=== PATIENT | male | born 1950 | race Caucasian/White ===

== ENCOUNTER 2021-07-28 08:29 | Day surgery (SDC) | payer MEDICARE, MEDICAID ==
[~2021-07-28] VITALS: Ht 180.3 cm; Wt 77.7 kg
[2021-07-28] VITALS (13 sets, daily range): BP systolic 118–172; BP diastolic 50–81
[~2021-07-28 08:29] MED LIST: AMOX-422 PO; ATOR80TA PO; DIGO125T97 PO; ENAL20TA75 PO; GLIP10TA11 PO; METF500T PO; METO50TA16 PO; NPH,100V SQ
[2021-07-28] MEDS ORDERED: MIRT-87 PO (09:03)
[2021-07-28] MEDS ORDERED: dextrose 50%-water 50ml dispensing syringe IV PRN ×2 (09:05)
[2021-07-28] MEDS ORDERED: glucagon, human recombinant 1mg kit SUBCUT PRN (09:05)
[2021-07-28] MEDS ORDERED: insulin Lispro (HumaLOG) vial - multi-dose SQ SCH (09:05)
[2021-07-28] MEDS ORDERED: DEXTROSE 15 GM of carb/4 tabs (each vial/BOTTLE has 4 tablets) PO PRN ×2 (09:05)
[2021-07-28] MEDS ORDERED: diphenhydrAMINE 25mg capsule PO PRN (09:05)
[2021-07-28] MEDS ORDERED: nitroGLYCERIN 0.4mg SUBLingual tab SL PRN ×2 (09:05→12:00)
[2021-07-28] MEDS ORDERED: normal saline 1,000 ML IV SCH (09:05)
[2021-07-28] MEDS ORDERED: MESSAGE TO PHARMACY PO ONE (09:05)
[2021-07-28] MEDS ORDERED: LORazepam 0.5 MG tablet PO PRN (09:05)
[2021-07-28] MEDS ORDERED: LIDOcaine 1% (10mg/ml)w/preservative inj. 20ml MDV ONE (09:34)
[2021-07-28] MEDS ORDERED: iohexol 350 MG/ML 50ML vial IV ONE ×2 (09:34→10:26)
[2021-07-28] MEDS ORDERED: midazolam 1 mg/ML 2ml injection ONE (09:34)
[2021-07-28] MEDS ORDERED: fentaNYL/PF 50MCG/1 ML 2ML syringe ONE (09:34)
[2021-07-28] MEDS ORDERED: iohexol 350MG/ML 100ml bottle IV ONE (09:34)
[2021-07-28] MEDS ORDERED: ondansetron/PF 4mg/2ml inj IV PRN (12:00)
[2021-07-28] MEDS ORDERED: OXAZEpam 15mg capsule PO PRN (12:00)
[2021-07-28] MEDS ORDERED: normal saline 1000ml 1,000 ML IV SCH (12:00)
[2021-07-28] MEDS ORDERED: HYDROcodone/acetaminophen 5mg/325mg tablet PO PRN (12:00)
[2021-07-28] MEDS ORDERED: HYDROcodone/acetaminophen 10/325mg tab PO PRN (12:00)
[2021-07-28] MEDS ORDERED: proCHLORperazine 10 MG/2 ml inj IV PRN (12:00)
[2021-07-28] MEDS ORDERED: insulin glargine (Lantus) pen - multi-dose SQ SCH (21:00)
== END 2021-07-28 17:00 | disposition home or self-care (01) ==
LOC: SSTAY O 08:29
PROVIDERS: ATTEND Internal Medicine Cardiovascular Disease
DX: R94.39 Abnormal result of other cardiovascular function study (principal); I25.10 Atherosclerotic heart disease of native coronary artery without angina pectoris; I10 Essential (primary) hypertension; I48.20 Chronic atrial fibrillation, unspecified; G20 Parkinson's disease; E11.40 Type 2 diabetes mellitus with diabetic neuropathy, unspecified; E78.5 Hyperlipidemia, unspecified; J44.9 Chronic obstructive pulmonary disease, unspecified; Z88.5 Allergy status to narcotic agent; Z87.891 Personal history of nicotine dependence; Z79.84 Long term (current) use of oral hypoglycemic drugs; Z79.899 Other long term (current) drug therapy
CPT/HCPCS: 82948; 93458; 99152; 99153; C1760; C1769; J1644; J1815; J2250; J3010; J3490; Q9967; 93567; A4620; A6258